=== PATIENT | male | born 1980 | race Caucasian/White ===

== ENCOUNTER 2016-12-20 03:22 | Outpatient (CLI) | payer MEDICAID | END 2016-12-20 03:23 | disposition critical access hospital (66) | DX: M25.561 Pain in right knee (principal) | CPT/HCPCS: A0425; A0429 ==

== ENCOUNTER 2016-12-20 03:38 | Emergency (ER) | payer MEDICAID ==
[2016-12-20] MEDS ORDERED: IBUPROFEN 600 MG TABLET PO STA (03:43)
[2016-12-20 03:44] VITALS: BP 137/89
[2016-12-20] MEDS ORDERED: IBUPROFEN 600 MG TABLET PO ONE (03:50)
--- NOTE | 2016-12-20 03:50 | ED Physician Documentation ---
PD HPI LOWER EXT INJURY - Stated complaint Stated Complaint: L KNEE PX - Chief complaint Chief Complaint: Ext Problem - History obtained from History obtained from: Patient, Family - History of Present Illness PD HPI LOW EXT INJURY LOCATION: Right Type of injury: Fall, Blunt / blow Where injury occurred: Work Timing - onset: Yesterday Timing - details: Abrupt onset Improved by: Rest, Immobilization Worsened by: Moving, Palpating Associated symptoms: No: Weakness, Numbness, Tingling, Swelling Contributing factors: No: Prior ortho surgery, Prosthetic joint Similar symptoms before: Has not had sx before Recently seen: Not recently seen - Additional information Additional information: Patient is a 36 year old male with a history of asthma who is working here with the [employer] who is presenting to the emergency department for knee pain. patient states that the pain started yesterday. The patient states that the only thing that he could think of is when he was putting in a stake he tripped, and landed on a rock. Patient and girlfriend called ems and were found in a parking lot of a restaurant. Review of Systems Constitutional: denies: Fever, Chills Eyes: denies: Loss of vision, Photophobia Ears: denies: Ear pain, Drainage/discharge Nose: denies: Rhinorrhea / runny nose, Congestion Throat: denies: Dental pain / toothache, Sore throat Cardiac: denies: Chest pain / pressure, Palpitations Respiratory: denies: Cough GI: denies: Abdominal Pain, Nausea, Vomiting : denies: Dysuria, Frequency, Hesitancy Skin: denies: Rash, Lesions, Laceration (s) Musculoskeletal: reports: Extremity pain, Joint pain Neurologic: denies: Generalized weakness, Focal weakness, Numbness Psychiatric: denies: Depressed PD PAST MEDICAL HISTORY - Present Medications Home Medications: Ambulatory Orders Medication Instructions Recorded Confirmed Albuterol 2.5 mg INH Q4H PRN 12/20/16 12/20/16 Hydrochlorothiazide 0 mg PO DAILY 12/20/16 12/20/16 Ibuprofen [Motrin] 600 mg PO Q6H PRN #20 tab 12/20/16 Lamotrigine [Lamictal] 150 mg PO DAILY 12/20/16 12/20/16 - Allergies Allergies/Adverse Reactions: Allergies Allergy/AdvReac Type Severity Reaction Status Date / Time No Known Drug Allergies Allergy Verified 12/20/16 03:52 PD ED PE NORMAL - Vitals Vital signs reviewed: Yes - General General: Alert and oriented X 3 - HEENT HEENT: Atraumatic, PERRL - Neck Neck: Supple, no meningeal sign - Cardiac Cardiac: RRR, No murmur - Respiratory Respiratory: No respiratory distress - Abdomen Abdomen: Soft, Non tender, Non distended - Derm Derm: Normal color, Warm and dry - Extremities Extremities: No deformity, No tenderness to palpate, Normal ROM s pain, No edema - Neuro Neuro: Alert and oriented X 3, game preserve manager 2-12 intact, No motor deficit, No sensory deficit - Psych Psych: Normal mood, Normal affect PD ED PE EXPANDED - Extremities Extremities: Right knee (tenderness to palpation, no laceration, or ecchymosis appreciated) Results - Vitals Vitals: Vital Signs - 24 hr 12/20/16 03:42 Temperature 37.1 C Heart Rate 98 Respiratory 20 Rate Blood Pressure 137/89 H O2 Saturation 97 - Rads (name of study) right knee Radiology: Final report received (no fracture or dislocation) PD MEDICAL DECISION MAKING - ED course Complexity details: reviewed results, re-evaluated patient, considered differential, d/w patient, d/w family ED course: Patient was seen and examined at bedside. Patient was treated with motrin and sent for imaging. When patient returned the results were reviewed. there was no acute fracture or dislocation appreciated. Patient was placed in an alberta bandage. Patient required no further work up at this time and was stable for discharge with outpatient follow up . Departure - Departure Disposition: 01 Home, Self Care Clinical Impression: Right knee pain Condition: Good Instructions: Knee How Works, RICE Follow-Up: primary,care provider [Other] - As Needed Prescriptions: Ibuprofen [Motrin] 600 mg PO Q6H PRN #20 tab PRN Reason: Pain Comments: Your diagnostics today were within normal limits. there was no acute fracture or dislocation. You should keep your knee wrapped and ice your knee. You can take motrin or tylenol as needed for pain. if your pain persist for more than 14 days you should follow up with your pmd. The only way to diagnose internal knee problems would be an MRI which would be scheduled by your doctor or an email production specialist. You should return to the emergency department for fevers , chills, chest pain or shortness of breath, new worsening or uncontrollable symptoms.
--- NOTE | 2016-12-20 04:32 | XRAY Preliminary Report ---
Exam: XR Knee 3 View RT IMPRESSION: 1. No fracture or dislocation seen. 2. Soft tissue swelling. [facility] SITE ID: [id number]
--- NOTE | 2016-12-20 04:35 | XRAY Report ---
EXAM: RIGHT KNEE RADIOGRAPHY EXAM DATE: 12/20/2016 04:05 AM. CLINICAL HISTORY: Right sided knee pain. COMPARISON: None. TECHNIQUE: 3 views. FINDINGS: Bones: No acute fracture seen. Joints: No dislocation. Joint spaces appear intact. No significant joint effusion. Soft Tissues: Soft tissue swelling. IMPRESSION: 1. No fracture or dislocation seen. 2. Soft tissue swelling. [facility] Referring Provider Line: [phone] SITE ID: [id number]
== END 2016-12-20 04:54 | disposition home or self-care (01) ==
LOC: ED 03:38
DX: M25.562 Pain in left knee (principal); W01.198A Fall on same level from slipping, tripping and stumbling with subsequent striking against other object, initial encounter; Y92.89 Other specified places as the place of occurrence of the external cause; Y99.0 Civilian activity done for income or pay; J45.909 Unspecified asthma, uncomplicated
CPT/HCPCS: 99283